=== PATIENT | female | born 1970 | race Two or more races ===

== ENCOUNTER 2024-12-07 16:59 | Emergency (ER) | payer MEDICAID, OTHER ==
[~2024-12-07] VITALS: Ht 160 cm; Wt 105.4 kg
[2024-12-07 17:03] VITALS: BP 125/73; RESP 16; TEMP 98.1; O2SAT 96
[2024-12-07 17:09] VITALS: PULSE 69
[2024-12-07] MEDS: MAALOX PLUS or MAALOX 30 ML PO ONE (18:17)
[2024-12-07 18:26] LABS: Hematocrit 43.1 % (36.0-46.0); Hemoglobin 14.9 g/dL (12.2-16.2); Mean Corpuscular Hemoglobin 33.5 pg (28.0-32.0); Mean Corpuscular Volume 97.2 fL (80.0-100.0); Nucleated Red Blood Cells % 0.1 %
[2024-12-07 18:37] LABS: Chloride 106 mmol/L (98-107); Sodium 141 mmol/L (136-145)
[2024-12-07 18:38] LABS: Anion Gap 11 (5-15); Calcium 8.9 mg/dL (8.7-10.4); Carbon Dioxide 24 mmol/L (20-31)
--- NOTE | 2024-12-07 18:40 | ED.PDOC ---
GI ASSESSMENT HPI Comments 53y F who presents to the ED for chief complaint of abdominal pain. Pt states she has been having abdominal pain for the past 4 months. Pt states the pain is diffusely located, intermittent, achy in nature with noted exacerbation of pain after eating spicy food and no relieving factors. Pt states she has had increasing exacerbation of pain due to spouse recently being admitted to hospital. Pt otherwise denies any associated symptoms. Pt has noted stable vitals in the ED. Pt otherwise denies any other symptoms at this time. Chief Complaint: Abdominal Pain Time Seen by MD: 18:15 Reviewed Notes: Medications, Allergies Allergies: Coded Allergies: NO KNOWN ALLERGIES (Unverified , 12/07/24) Home Meds Active Scripts Famotidine (PEPCID TABLET) 20 Mg Tb, 1 TAB PO BID for 14 Days, #28 TAB 0 Refills Prov:TOREY SIMPSON MD 12/07/24 Information Source: Patient Mode of Arrival: Ambulatory Past Medical History Past Medical History (Other): fatty liver disease Surgical History: Denies all surgeries FOOD AND BEVERAGE CONTROLLER History: Denies all FOOD AND BEVERAGE CONTROLLER Hx Family History Family History: Reviewed,noncontributory to illness Social History Smoker: Non-Smoker Alcohol: Denies ETOH Use Drugs: Denies Drug Use Lives In: Home Constitutional: denies: chills, diaphoresis, fatigue, fever, malaise, sweats, weakness, others EENTM: denies: blurred vision, double vision, ear bleeding, ear discharge, ear drainage, ear pain, ear ringing, eye pain, eye redness, hearing loss, mouth pain, mouth swelling, nasal discharge, nose bleeding, nose congestion, nose pain, photophobia, tearing, throat pain, throat swelling, voice changes, others Respiratory: denies: cough, hemoptysis, orthopnea, SOB at rest, shortness of breath, SOB with excertion, stridor, wheezing, others Cardiovascular: denies: chest pain, dizzy spells, diaphoresis, Dyspnea on exertion, edema, irregular heart beat, left arm pain, lightheadedness, palpitations, PND, syncope, others Gastrointestinal: reports: abdominal pain; denies: abdomen distended, blood streaked bowels, constipated, diarrhea, dysphagia, difficulty swallowing, hematemesis, melena, nausea, poor appetite, poor fluid intake, rectal bleeding, rectal pain, vomiting, others Genitourinary: denies: abnormal vagina bleeding, burning, dyspareunia, dysuria, flank pain, frequency, hematuria, incontinence, pain, , vagina discharge, urgency, others Neurological: denies: dizziness, fainting, headache, left sided numbness, left sided weakness, numbness, paresthesia, pre-existing deficit, right sided numbness, right sided weakness, seizure, speech problems, tingling, tremors, weakness, others Musculoskeletal: denies: back pain, gout, joint pain, joint swelling, muscle pain, muscle stiffness, neck pain, others Integumetry: denies: bruises, change in color, change in hair/nails, dryness, laceration, lesions, lumps, rash, wounds, others Allergic/Immunocompromised: denies: Difficulty Healing, Frequent Infections, Hives, Itching, others Hematologic/Lymphatic: denies: anemia, blood clots, easy bleeding, easy bruising, swollen glands, others Endocrine: denies: excessive hunger, excessive sweating, excessive thirst, excessive urination, flushing, intolerance to cold, intolerance to heat, unexplained weight gain, unexplained weight loss, others Psychiatric: denies: anxiety, bipolar disorder, depression, hopeless, panic disorder, schizophrenia, sleepless, suicidal, others All Other Systems: Reviewed and Negative Physical Exam General Appearance: No Apparent Distress, Normal HEENT: Normal ENT Inspection, Pharynx Normal, TMs Normal Neck: Full Range of Motion, Non-Tender, Normal, Normal Inspection Respiratory: Chest Non-Tender, Lungs Clear, No Accessory Muscle Use, No Respiratory Distress, Normal Breath Sounds Cardiovascular: No Edema, No JVD, No Murmur, No Gallop, Normal Peripheral Pulses, Regular Rate/Rhythm Breast Exam: Deferred Gastrointestinal: No Organomegaly, Non Tender, No Pulsatile Mass, Normal Bowel Sounds, Soft Genitalia: Deferred Pelvic: Deferred Rectal: Deferred Extremities: No calf tenderness, Normal capillary refill, Normal inspection, Normal range of motion, Non-tender, No pedal edema Musculoskeletal : Apperance: Normal Neurologic: Alert, 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 Was a procedure done?: No GI differential Dx Differential Diagnosis: Esophagitis, Gastritis/PUD, Gastroenteritis, Pancreatitis, UTI, Dehydration, Food Poisoning, Bacterial, Stress Ulcer, Kidney Stone X-Ray, Labs, Meds, VS Vital Signs Date Time Temp Pulse Resp B/P (MAP) Pulse Ox O2 Delivery O2 Flow Rate FiO2 12/07/24 17:09 69 12/07/24 17:03 98.1 71 16 125/73 96 98.1 Lab Test 12/07/24 18:06 12/07/24 18:03 Range/Units Urine Color Light-yellow Yellow Urine Clarity Clear Clear Urine pH 6.5 5.0-9.0 Urine Specific Rogers 1.018 1.001-1.035 Urine Protein Negative Negative Urine Ketones Trace Negative Urine Blood Trace H Negative /uL Urine Nitrite Negative Negative Urine Bilirubin Negative Negative Urine Urobilinogen Normal Negative mg/dL Urine Leukocyte Esterase Negative Negative /uL Urine RBC <1 0 - 4 /hpf Urine Microscopic WBC 1 0-5 /HPF Urine Squamous Epithelial Cells Few <5 /hpf Urine Bacteria None seen None Seen /hpf Urine Mucus Few None Seen Urine Glucose Normal Normal mg/dL Urine Test Negative Negative White Blood Count 7.0 4.4-10.8 10^3/uL Red Blood Count 4.43 4.0-5.20 10^6/uL Hemoglobin 14.9 12.2-16.2 g/dL Hematocrit 43.1 36.0-46.0 % Mean Corpuscular Volume 97.2 80.0-100.0 fL Mean Corpuscular Hemoglobin 33.5 H 28.0-32.0 pg Mean Corpuscular Hemoglobin Concent 34.5 32.0-36.0 g/dL Red Cell Distribution Width 13.2 11.8-14.3 % Platelet Count 205 140-450 10^3/uL Mean Platelet Volume 9.1 6.9-10.8 fL Neutrophils (%) (Auto) 50.4 37.0-80.0 % Lymphocytes (%) (Auto) 40.1 10.0-50.0 % Monocytes (%) (Auto) 8.4 0.0-12.0 % Eosinophils (%) (Auto) 0.6 0.0-7.0 % Basophils (%) (Auto) 0.5 0.0-2.0 % Neutrophils # (Auto) 3.5 1.6-8.6 10 ^3/uL Lymphocytes # (Auto) 2.8 0.4-5.4 10 ^3/uL Monocytes # (Auto) 0.6 0-1.3 10 ^3/uL Eosinophils # (Auto) 0 0-0.8 10 ^3/uL Basophils # (Auto) 0 0-0.2 10 ^3/uL Nucleated Red Blood Cells 0.1 % Sodium Level 141 136-145 mmol/L Potassium Level 3.4 L 3.5-5.1 mmol/L Chloride Level 106 98-107 mmol/L Carbon Dioxide Level 24 20-31 mmol/L Anion Gap 11 5-15 Blood Urea Nitrogen 8 L 9-23 mg/dL Creatinine 0.55 0.550-1.02 mg/dL Glomerular Filtration Rate Calc 109 >90 mL/min BUN/Creatinine Ratio 14.5 10.0-20.0 Serum Glucose 86 74-106 mg/dL Calcium Level 8.9 8.7-10.4 mg/dL Troponin I High Sensitivity < 3 L </=34 ng/L Current Medications Medications (Trade) Dose Ordered Sig/Dorota Route Start Time Stop Time Status Last Admin Al Hydrox/Mg Hydrox/Simethicone (Maalox Plus) 15 ml ONCE ONCE PO 12/07/24 18:00 12/07/24 18:01 DC 12/07/24 18:17 X-Ray, Labs, Meds, VS Comment Patient presents with epigastric pain with etiology most likely secondary to gastritis/GERD or other benign etiology. Discussed management as outpatient with H2 Michael (for which prescription was sent to the pharmacy) and risk reduction with lifestyle changes such as sleeping at an angle, reduction in trigger (acidic/caffeinated/spicy/alcohol) foods, spreading out meals to 5-6 small meals per day, and minimizing PO intake 2 hours prior to sleep. Reviewed return precautions with patient including worsening pain, PO intolerance, fever > 100.4. Reviewed return precautions including, but not limited to fever > 100.4, worsening of symptoms, and PO intolerance. Patient is in agreement with the plan and all questions answered. Considered acute biliary process (dayo docholithiasis, cholecystitis, cholangitis), pancreatitis, UGIB, PUD, gastric perforation, lower lobe pneumonia, atypical ACS/RI, or vascular catastrophe, but based on above history/physical/evaluation as above consider these to be less likely. Time of 1ST Reevaluation: 19:00 Reevaluation 1ST: Improved Patient Education/Counseling: Diagnosis, Treatment Family Education/Counseling: No Family Present SEPSIS Sepsis Screen Date sepsis recognized/suspect: Dec 07, 2024 Time Sepsis recognized/suspect: 1704 Recent Procedure: No On Antibiotic Therapy: No Respiratory Rate >20: No Heart Rate >90: No Temp<36 C (96.8 F) or >38.3 C: No SBP <90 or MAP <65 mmHG: No New Acute Mental Status Change: No Is the patient on CPAP, BIPAP,: No Physician Orders Electrocardigram (12/07/24 17:17) Vital Signs Date Time Temp Pulse Resp B/P (MAP) Pulse Ox O2 Delivery O2 Flow Rate FiO2 12/07/24 17:09 69 12/07/24 17:03 98.1 71 16 125/73 96 98.1 Laboratory Tests Test 12/07/24 18:03 White Blood Count 7.0 10^3/uL (4.4-10.8) Medications Medications Dose Ordered Sig/Dorota Route Start Time Stop Time Status Last Admin Dose Admin Al Hydrox/Mg Hydrox/Simethicone 15 ml ONCE ONCE PO 12/07/24 18:00 12/07/24 18:01 DC 12/07/24 18:17 Departure 1 Departure Time of Disposition: 22:05 Impression: Primary Impression: GERD (gastroesophageal reflux disease) Disposition: 01 HOME / SELF CARE / HOMELESS Condition: Stable e-Prescriptions Famotidine (PEPCID TABLET) 20 Mg Tb 1 TAB PO BID for 14 Days, #28 TAB 0 Refills Prov: TOREY SIMPSON MD 12/07/24 Discharged With: Self Critical Care Note Critical Care Time?: No Stability Stability form required: No Heart Score Heart Score: Heart Score Response (Comments) Value History N/A 0 EKG N/A 0 Age N/A 0 Risk Factors N/A 0 Troponin N/A 0 Total 0 I personally scribed for TOREY SIMPSON MD ([email or web address]) on 12/07/24 at 18:40. Electronically submitted by Kahlil Guidry ([email or web address]). TOREY SIMPSON MD Dec 07, 2024 18:40
[2024-12-07 18:43] LABS: BUN/Creatinine Ratio 14.5 (10.0-20.0); Glucose 86 mg/dL (74-106)
[2024-12-07 19:07] LABS: Blood Urea Nitrogen 8 mg/dL (9-23); Potassium 3.4 mmol/L (3.5-5.1)
[2024-12-07 19:11] LABS: Urine Protein, UAD Negative (Negative)
[2024-12-07] MEDS ORDERED: FAMO20TA10 PO (19:49)
--- NOTE | 2024-12-11 10:56 | ECG ---
[facility] Test Date: 2024-12-07 Test Time: 17:09:44 Pat Name: KAILA WISE Department: ED Room: Gender: F Customer Service Teller: werner : 1970 Requested By: EMERGENCY EMERGENCY Order Number: [id number] Reading MD: Ra Cornejo Measurements Intervals [place] Rate: 69 P: 54 TN: 192 QRS: 38 QRSD: 87 T: 36 QT: 448 QTc: 480 Interpretive Statements Sinus rhythm Low voltage, precordial leads Borderline prolonged QT interval Electronically Signed On 12-12-2024 16:20:09 PDT by Ra Cornejo Please click the below link to view image of tracing.
== END 2024-12-07 21:30 | disposition home or self-care (01) ==
LOC: ER 16:59
DX: R10.13 Epigastric pain (principal); K21.9 Gastro-esophageal reflux disease without esophagitis; Z79.899 Other long term (current) drug therapy
CPT/HCPCS: 36415; 80048; 81001; 81025; 84484; 85025; 93005